=== PATIENT | male | born 1940 | race Caucasian/White ===

== ENCOUNTER → 2017-10-15 | Outpatient (CLI) | payer MEDICARE, OTHER ==
[2014-01-21 16:59] VITALS: BMI 27.1
[~2017-10-15] MED LIST: ACET-2031 PO; ALBU8.5H IH; ASPI-717 PO; ASPI-816 PO; AZIT500T47 PO; BIMA2.5D5 OP; DORZ10DR3 OP; ESCI10TA8 PO; FLU45SYR17 IM; HYDR-385 PO; IBUP-56 PO; LISI-362 PO; ONDA4TAB PO; OXYC-856 PO; RIVA15TA PO; RIVA20TA PO
[2017-10-15 13:37] LABS: PLATELET COUNT, AUTOMATED 179 K/uL (150-450)
== END ==
LOC: LAB 13:15
PROVIDERS: ATTEND Family Medicine
DX: I10 Essential (primary) hypertension (principal)
CPT/HCPCS: 36415; 82040; 82247; 82310; 82374; 82435; 82565; 82947; 84075; 84132; 84155; 84295; 84450; 84460; 84520; 85025

== ENCOUNTER → 2017-10-15 | Outpatient (CLI) | payer MEDICARE, OTHER ==
[2014-01-21 16:59] VITALS: BMI 27.1
== END ==
LOC: LAB 13:27
PROVIDERS: ATTEND Family Medicine
DX: Z02.9 Encounter for administrative examinations, unspecified (principal)

== ENCOUNTER → 2018-10-10 | Outpatient (CLI) | payer MEDICARE, OTHER ==
[2014-01-21 16:59] VITALS: BMI 27.1
[~2018-10-10] MED LIST changes: -ASPI-816 PO; +ASPI-870 PO; +FLUT16SP19 NS; +NYST15CR32 TP
[2018-10-10 17:25] LABS: PLATELET COUNT, AUTOMATED 210 K/uL (150-450)
== END ==
LOC: LAB 16:48
PROVIDERS: ATTEND Family Medicine
DX: I10 Essential (primary) hypertension (principal)
CPT/HCPCS: 36415; 82310; 82374; 82435; 82565; 82947; 84132; 84295; 84520; 85025

== ENCOUNTER 2018-11-10 12:29 | Emergency (ER) | payer MEDICARE, OTHER ==
[2014-01-21 16:59] VITALS: Wt 88.5 kg
--- NOTE | 2018-11-10 14:44 | ER Report ---
History and Physical Time Seen By MD: 13:00 Hx. of Stated Complaint: Pt. having blood in urine. No history of hematuria. UA sample was all blood. HPI/ROS CHIEF COMPLAINT: Blood in urine HISTORY OF PRESENT ILLNESS: 78 y/o m presents with blood in urine that he believes has been ongoing for 1 day. He believes he has had this 1 year ago, has never had workup. Mother had br cx, no other cx hx. No dysuria, no fevers/chills /abd pain/n/v. Night sweats x 2 yrs, no sig wt loss. No bone pain. Able to urinate. REVIEW OF SYSTEMS: Constitutional: No fever, no chills. Eyes: no blurred vision ENT: No sore throat. Cardiovascular: No chest pain, no palpitations. Respiratory: No cough, no shortness of breath. Gastrointestinal: No abdominal pain, no vomiting. Genitourinary: above Musculoskeletal: No back pain Skin: No rashes. Neurological: No headache. Remainder of the 14 system rev: Yes Allergies: Coded Allergies: No Known Drug Allergies (Verified , 11/10/18) Home Meds Active Scripts NYSTATIN 933511 UNT/ML Topical Cream (NYSTATIN 414744 UNT/ML Topical Cream) 15 Gm Cream..g., 15 GM TP BID for 30 Days, #1 TUBE Prov:KATI OROPEZA MD 10/10/18 Fluticasone Prop 50 Mcg Ns (FLONASE 50 MCG NS) 16 Gm [place].susp, 2 SPRAYS NS QDAY for 30 Days, #1 BOT 3 Refills Prov:KATI OROPEZA MD 10/10/18 Lisinopril (LISINOPRIL) 10 Mg Tablet, 2 TAB PO DAILY for 90 Days, #90 TAB 4 Refills Prov:KATI OROPEZA MD 10/10/18 Aspirin (Children's Aspirin) 81 Mg Tab.chew, 1 TAB PO DAILY, #100 TAB 4 Refills Prov:RODRÍGUEZ WELLER MD 05/14/14 Reported Medications Bimatoprost (LUMIGAN) 2.5 Ml Drops, 1 DROP OP QPM 10/31/13 Dorzolamide Hcl/Timolol Maleat (COSOPT EYE DROPS) 10 Ml Drops, 1 DROP OP BID 10/31/13 Reviewed Nurses Notes: Yes Hx Smoking: Yes (5-6 a day) Smoking Status: Current: Every Day Smoker Hx Substance Use Disorder: No Hx Alcohol Use: Yes (quit 8 yrs ago) Constitutional Vital Sign - Last 24 Hours 11/10/18 11/10/18 11/10/18 11/10/18 12:44 12:48 12:49 12:54 Temp 98.9 Pulse 85 81 81 Resp 16 B/P (MAP) 168/85 168/85 (112) Pulse Ox 93 95 88 O2 Delivery Room Air 11/10/18 11/10/18 11/10/18 11/10/18 12:59 13:04 13:09 13:14 Pulse 81 70 74 73 Pulse Ox 87 92 88 89 11/10/18 11/10/18 11/10/18 11/10/18 13:19 13:24 13:29 13:34 Pulse 73 74 75 73 Pulse Ox 95 94 91 89 11/10/18 11/10/18 11/10/18 11/10/18 13:39 13:44 13:49 13:54 Pulse 66 75 77 71 Pulse Ox 90 92 91 92 11/10/18 11/10/18 11/10/18 11/10/18 13:59 14:04 14:09 14:14 Pulse 72 81 92 75 Pulse Ox 89 92 96 92 11/10/18 11/10/18 11/10/18 11/10/18 14:19 14:24 14:29 14:34 Pulse 73 76 75 76 Pulse Ox 90 93 87 90 11/10/18 11/10/18 11/10/18 11/10/18 14:39 14:44 14:49 14:54 Pulse 69 71 72 75 B/P (MAP) 155/81 (105) Pulse Ox 93 95 89 90 11/10/18 11/10/18 11/10/18 11/10/18 14:59 15:00 15:04 15:09 Pulse 73 74 73 B/P (MAP) 141/89 (106) Pulse Ox 94 91 88 11/10/18 11/10/18 11/10/18 11/10/18 15:14 15:24 15:29 15:30 Pulse 74 71 73 B/P (MAP) 151/90 (110) Pulse Ox 92 91 92 11/10/18 11/10/18 11/10/18 11/10/18 15:34 15:39 15:44 15:49 Pulse 70 75 81 75 Pulse Ox 94 91 92 92 Physical Exam General Appearance: The patient is alert, has no immediate need for airway protection and no signs of toxicity. [ ] ENT, Mouth: Mucous membranes are moist. Respiratory: There are no retractions, lungs are clear to auscultation. Cardiovascular: Regular rate and rhythm. Gastrointestinal: Abdomen is soft and non tender, no masses, bowel sounds normal. Neurological: alert, oriented, moves all ext Skin: Warm and dry, no rashes. Musculoskeletal: Extremities are nontender, nonswollen and have full range of motion. DIFFERENTIAL DIAGNOSIS: After history and physical exam differential diagnosis was considered for uti, mass, prostatitis, or other emergent etiology. Medical Decision Making Data Points Result Diagram: 11/10/18 1438 11/10/18 1438 Laboratory Hematology Test 11/10/18 12:40 11/10/18 14:38 Urine Color Red Urine Clarity Turbid Urine pH 6.0 pH (4.8-9.5) Urine Specific [place] 1.020 Urine Protein 100 mg/dL (NEGATIVE) Urine Glucose (UA) Negative mg/dL (NEGATIVE) Urine Ketones Negative mg/dL (NEGATIVE) Urine Blood Large (NEGATIVE) Urine Nitrite Negative (NEGATIVE) Urine Bilirubin Negative (NEGATIVE) Urine Urobilinogen 0.2 mg/dL (0.2-1.9) Urine Leukocyte Esterase Negative (NEGATIVE) Urine RBC Tntc /HPF (0-2/HPF) Urine WBC 1-3 /HPF (0-5/HPF) Urine Squamous Epithelial Cells Rare /LPF (</=FEW) Urine Bacteria Rare /HPF (NONE-FEW) Urine Mucus None /HPF (NONE-FEW) Red Blood Count 5.46 M/uL (4.00-5.60) Mean Corpuscular Volume 91.7 fL (80.0-96.0) Mean Corpuscular Hemoglobin 30.9 pg (26.0-33.0) Mean Corpuscular Hemoglobin Concent 33.7 g/dL (32.0-36.0) Red Cell Distribution Width 14.2 % (11.5-14.5) Mean Platelet Volume 8.5 fL (7.2-11.1) Neutrophils (%) (Auto) 75.1 % (39.4-72.5) Lymphocytes (%) (Auto) 15.8 % (17.6-49.6) Monocytes (%) (Auto) 7.3 % (4.1-12.4) Eosinophils (%) (Auto) 0.6 % (0.4-6.7) Basophils (%) (Auto) 1.2 % (0.3-1.4) Nucleated RBC Relative Count (auto) 0.1 /100WBC Neutrophils # (Auto) 5.9 K/uL (2.0-7.4) Lymphocytes # (Auto) 1.2 K/uL (1.3-3.6) Monocytes # (Auto) 0.6 K/uL (0.3-1.0) Eosinophils # (Auto) 0.0 K/uL (0.0-0.5) Basophils # (Auto) 0.1 K/uL (0.0-0.1) Nucleated RBC Absolute Count (auto) 0.00 K/uL Peripheral Blood Smear No Y/N Prothrombin Time 14.0 seconds (12.0-14.4) Prothromb Time International Ratio 1.08 Activated Partial Thromboplast Time 32 seconds (23-35) Sodium Level 139 mmol/L (137-145) Potassium Level 4.4 mmol/L (3.5-5.0) Chloride Level 107 mmol/L (98-107) Carbon Dioxide Level 27 mmol/L (22-30) Blood Urea Nitrogen 17 mg/dl (9-21) Creatinine 1.10 mg/dl (0.66-1.25) Glomerular Filtration Rate Calc > 60.0 Random Glucose 103 mg/dl (75-110) Calcium Level 8.7 mg/dl (8.4-10.2) Total Bilirubin 0.5 mg/dl (0.2-1.3) Aspartate Amino Transf (AST/SGOT) 16 U/L (0-35) Alanine Aminotransferase (ALT/SGPT) 20 U/L (0-56) Alkaline Phosphatase 58 U/L (0-126) Total Protein 6.5 g/dl (6.3-8.2) Albumin 3.9 g/dl (3.5-5.0) Chemistry Test 11/10/18 12:40 11/10/18 14:38 Urine Color Red Urine Clarity Turbid Urine pH 6.0 pH (4.8-9.5) Urine Specific [place] 1.020 Urine Protein 100 mg/dL (NEGATIVE) Urine Glucose (UA) Negative mg/dL (NEGATIVE) Urine Ketones Negative mg/dL (NEGATIVE) Urine Blood Large (NEGATIVE) Urine Nitrite Negative (NEGATIVE) Urine Bilirubin Negative (NEGATIVE) Urine Urobilinogen 0.2 mg/dL (0.2-1.9) Urine Leukocyte Esterase Negative (NEGATIVE) Urine RBC Tntc /HPF (0-2/HPF) Urine WBC 1-3 /HPF (0-5/HPF) Urine Squamous Epithelial Cells Rare /LPF (</=FEW) Urine Bacteria Rare /HPF (NONE-FEW) Urine Mucus None /HPF (NONE-FEW) White Blood Count 7.8 k/uL (4.5-11.0) Red Blood Count 5.46 M/uL (4.00-5.60) Hemoglobin 16.9 g/dL (14.0-18.0) Hematocrit 50.0 % (42.0-52.0) Mean Corpuscular Volume 91.7 fL (80.0-96.0) Mean Corpuscular Hemoglobin 30.9 pg (26.0-33.0) Mean Corpuscular Hemoglobin Concent 33.7 g/dL (32.0-36.0) Red Cell Distribution Width 14.2 % (11.5-14.5) Platelet Count 172 K/uL (150-450) Mean Platelet Volume 8.5 fL (7.2-11.1) Neutrophils (%) (Auto) 75.1 % (39.4-72.5) Lymphocytes (%) (Auto) 15.8 % (17.6-49.6) Monocytes (%) (Auto) 7.3 % (4.1-12.4) Eosinophils (%) (Auto) 0.6 % (0.4-6.7) Basophils (%) (Auto) 1.2 % (0.3-1.4) Nucleated RBC Relative Count (auto) 0.1 /100WBC Neutrophils # (Auto) 5.9 K/uL (2.0-7.4) Lymphocytes # (Auto) 1.2 K/uL (1.3-3.6) Monocytes # (Auto) 0.6 K/uL (0.3-1.0) Eosinophils # (Auto) 0.0 K/uL (0.0-0.5) Basophils # (Auto) 0.1 K/uL (0.0-0.1) Nucleated RBC Absolute Count (auto) 0.00 K/uL Peripheral Blood Smear No Y/N Prothrombin Time 14.0 seconds (12.0-14.4) Prothromb Time International Ratio 1.08 Activated Partial Thromboplast Time 32 seconds (23-35) Glomerular Filtration Rate Calc > 60.0 Calcium Level 8.7 mg/dl (8.4-10.2) Total Bilirubin 0.5 mg/dl (0.2-1.3) Aspartate Amino Transf (AST/SGOT) 16 U/L (0-35) Alanine Aminotransferase (ALT/SGPT) 20 U/L (0-56) Alkaline Phosphatase 58 U/L (0-126) Total Protein 6.5 g/dl (6.3-8.2) Albumin 3.9 g/dl (3.5-5.0) Coagulation Test 11/10/18 14:38 Prothrombin Time 14.0 seconds Prothromb Time International Ratio 1.08 Activated Partial Thromboplast Time 32 seconds Urinalysis Test 11/10/18 12:40 Urine Color Red Urine Clarity Turbid Urine pH 6.0 pH (4.8-9.5) Urine Specific [place] 1.020 Urine Protein 100 mg/dL (NEGATIVE) Urine Glucose (UA) Negative mg/dL (NEGATIVE) Urine Ketones Negative mg/dL (NEGATIVE) Urine Blood Large (NEGATIVE) Urine Nitrite Negative (NEGATIVE) Urine Bilirubin Negative (NEGATIVE) Urine Urobilinogen 0.2 mg/dL (0.2-1.9) Urine Leukocyte Esterase Negative (NEGATIVE) Urine RBC Tntc /HPF (0-2/HPF) Urine WBC 1-3 /HPF (0-5/HPF) Urine Squamous Epithelial Cells Rare /LPF (</=FEW) Urine Bacteria Rare /HPF (NONE-FEW) Urine Mucus None /HPF (NONE-FEW) ED Course/Re-evaluation ED Course 78-year-old male presents with asymptomatic hematuria. He has had some constitutional symptoms though states these of been ongoing. He has no personal cancer history. UA is not revealing for UTI. Patient is able to urinate and does not want Her at this point. My bedside ultrasound does show appearance of mass in the bladder. HD stable; will f/u with Dr. Cabrera. Pt aware of SRP's including obstruction. Decision to Disposition Date: Nov 10, 2018 Decision to Disposition Time: 16:02 Depart Departure Latest Vital Signs Vital Signs Date Time Temp Pulse Resp B/P (MAP) Pulse Ox O2 Delivery O2 Flow Rate FiO2 11/10/18 15:49 75 92 11/10/18 15:30 151/90 (110) 11/10/18 12:44 98.9 16 Room Air Impression: Primary Impression: Hematuria Condition: Improved Disposition: HOME OR SELF-CARE Referrals: KATI OROPEZA MD (PCP) 2 Days EMMIE CABRERA MD 1 Day Patient Instructions: Hematuria (ED) Additional Instructions: As we discussed, call Dr. Cabrera's office tomorrow for follow up. He stated he would be able to see you this week. Please return if unable to urinate, pain, or any concerns. Problem Qualifiers Primary Impression: Hematuria Hematuria type: gross Qualified Codes: R31.0 - Gross hematuria VLAD CLEMENTE MD Nov 10, 2018 14:44
[2018-11-10 14:49] LABS: PLATELET COUNT, AUTOMATED 172 K/uL (150-450)
[2018-11-10 14:57] LABS: INR 1.08
[2018-11-10 15:30] VITALS: BP 151/90
== END 2018-11-10 16:20 | disposition home or self-care (01) ==
LOC: ER 13:25
DX: R31.0 Gross hematuria (principal); N32.89 Other specified disorders of bladder
CPT/HCPCS: 36415; 81001; 82040; 82247; 82310; 82374; 82435; 82565; 82947; 84075; 84132; 84155; 84295; 84450; 84460; 84520; 85025; 85610; 85730; 99284

== ENCOUNTER → 2018-11-11 | Outpatient (REF) | payer MEDICARE, OTHER ==
[2014-01-21 16:59] VITALS: BMI 27.1
--- NOTE | 2018-11-11 17:34 | RADIOLOGY IMAGING REPORT ---
FACILITY: [facility] - [place] PATIENT NAME: Ashutosh Pham : 1940 MR: [id number] V: [id number] EXAM DATE: ORDERING PHYSICIAN: EMMIE LOMAS TECHNOLOGIST: [place] [facility] [place]: Ashutosh Pham : 1940 Visit/Account:[id number] Date of Sevice: 11/11/2018 CT ABDOMEN PELVIS W & W/O CONTRAST HISTORY: Hematuria TECHNIQUE: Axial images acquired through the abdomen/pelvis both with and without IV contrast.. Vlad nal and sagittal reformatting also performed.Dose Lowering Technique One of the following dose optimization techniques was utilized in the performance of this exam: Autom ated exposure control; adjustment of the mA and/or kV according to the patient's size; or use of an i terative reconstruction technique. Specific details can be referenced in the facility's radiology C T exam operational policy. CONTRAST: 125 mL Isovue-370 COMPARISON: CTA chest January 20, 2014 FINDINGS: Visualized lung bases: There is linear scarring in the right lung base Hepatobiliary: There is a round subcentimeter hypoattenuating lesion in the left lobe the liver whic h may represent a cyst although is too small to characterize Spleen: Negative. Adrenals: There is thickening of both adrenal glands Pancreas: Negative. Kidneys ureters and bladder: There is partial duplication of the right renal collecting system. Ther e is a 2.5 x 2.8 x 2.9 cm mass in the posterior left-sided the bladder just anterior to the left UVJ Genitalia: Prostate gland is enlarged impinging upon the floor the bladder GI: There is a moderate amount of fecal material seen throughout colon which can be seen with consti pation Vessels/spaces/nodes: There extensive atherosclerotic calcifications throughout the abdomen and pelv is Bones/soft tissues: There small bilateral inguinal hernias containing fat, left greater than right. Small sclerotic densities are identified in the right iliac bone which may simply represent bone isl ands. There are extensive spondylotic changes in the lumbar spine Additional findings: None pertinent. IMPRESSION: There is a 2.5 x 2.8 x 2.9 cm mass in the posterior left-sided the bladder just anterior to the left UVJ which is concerning for neoplasm Prostate gland is moderately enlarged impinging upon the floor the bladder There is thickening of both adrenal glands Moderate amount of fecal material in the colon which can be seen with constipation Small bilateral inguinal hernias containing fat, left greater than right Small sclerotic densities in the right iliac bone may simply represent bone islands although clinical correlation needed Report Dictated By: Farhana Singh MD at 11/11/2018 5:19 PM Report E-Signed By: Farhana Singh MD at 11/11/2018 5:31 PM BILLYN:[email or web address]
== END ==
LOC: ZZSENDIN 11:10
PROVIDERS: ATTEND Urology
DX: Z00.00 Encounter for general adult medical examination without abnormal findings (principal); R97.20 Elevated prostate specific antigen [PSA]
CPT/HCPCS: 84153

== ENCOUNTER → 2018-11-11 | Outpatient (CLI) | payer MEDICARE, OTHER ==
[2014-01-21 16:59] VITALS: BMI 27.1
[~2018-11-11] MED LIST changes: +IOPAMIDOL 76% 100 ML INFUS BTL 100 ML ONE; +NS(*) 0.9% 50 ML BAG 50 ML ONE
--- NOTE | 2018-11-12 15:00 | RADIOLOGY IMAGING REPORT ---
FACILITY: [facility] - [place] PATIENT NAME: Ashutosh Pham : 1940 MR: [id number] V: [id number] EXAM DATE: ORDERING PHYSICIAN: EMMIE LOMAS TECHNOLOGIST: Location: [facility] [place] Patient: Ashutosh Pham : 1940 Visit/Account:[id number] Date of Sevice: 11/11/2018 CT ABDOMEN PELVIS W & W/O CONTRAST HISTORY: Hematuria TECHNIQUE: Axial images acquired through the abdomen/pelvis both with and without IV contrast.. Vlad nal and sagittal reformatting also performed.Dose Lowering Technique One of the following dose optimization techniques was utilized in the performance of this exam: Autom ated exposure control; adjustment of the mA and/or kV according to the patient's size; or use of an i terative reconstruction technique. Specific details can be referenced in the facility's radiology C T exam operational policy. CONTRAST: 125 mL Isovue-370 COMPARISON: CTA chest January 20, 2014 FINDINGS: Visualized lung bases: There is linear scarring in the right lung base Hepatobiliary: There is a round subcentimeter hypoattenuating lesion in the left lobe the liver whic h may represent a cyst although is too small to characterize Spleen: Negative. Adrenals: There is thickening of both adrenal glands Pancreas: Negative. Kidneys ureters and bladder: There is partial duplication of the right renal collecting system. Ther e is a 2.5 x 2.8 x 2.9 cm mass in the posterior left-sided the bladder just anterior to the left UVJ Genitalia: Prostate gland is enlarged impinging upon the floor the bladder GI: There is a moderate amount of fecal material seen throughout colon which can be seen with consti pation Vessels/spaces/nodes: There extensive atherosclerotic calcifications throughout the abdomen and pelv is Bones/soft tissues: There small bilateral inguinal hernias containing fat, left greater than right. Small sclerotic densities are identified in the right iliac bone which may simply represent bone isl ands. There are extensive spondylotic changes in the lumbar spine Additional findings: None pertinent. IMPRESSION: There is a 2.5 x 2.8 x 2.9 cm mass in the posterior left-sided the bladder just anterior to the left UVJ which is concerning for neoplasm Prostate gland is moderately enlarged impinging upon the floor the bladder There is thickening of both adrenal glands Moderate amount of fecal material in the colon which can be seen with constipation Small bilateral inguinal hernias containing fat, left greater than right Small sclerotic densities in the right iliac bone may simply represent bone islands although clinical correlation needed Report Dictated By: Farhana Singh MD at 11/11/2018 5:19 PM Report E-Signed By: Farhana Singh MD at 11/11/2018 5:31 PM BILLYN:[email or web address]
== END ==
LOC: CT 14:04
PROVIDERS: ATTEND Urology
DX: R31.0 Gross hematuria (principal)
CPT/HCPCS: 74178; J7050; Q9967

== ENCOUNTER 2018-11-18 02:44 | Inpatient (IN) | payer MEDICARE, OTHER ==
--- NOTE | 2018-11-12 16:15 | EKG ---
FACILITY: [facility] - [place] PATIENT NAME: MARILEE JAIME : [id number] MR: [id number] V: [id number] EXAM DATE: ORDERING PHYSICIAN: EMMIE LOMAS TECHNOLOGIST: Test Reason : Pre-op Blood Pressure : / mmHG Vent. Rate : 073 BPM Atrial Rate : 073 BPM P-R Int : 128 ms QRS Dur : 086 ms QT Int : 412 ms P-R-T Axes : 082 054 -38 degrees QTc Int : 453 ms Normal sinus rhythm Nonspecific ST and T wave abnormality Abnormal ECG When compared with ECG of 13-APR-2017 15:14, No significant change was found Confirmed by Sree Paz ([id number]) on 11/13/2018 12:07:22 AM Referred By: Confirmed By:Sree Messer
[2018-11-12 16:30] LABS: INR 1.03
--- NOTE | 2018-11-12 16:43 | RADIOLOGY IMAGING REPORT ---
FACILITY: [facility] PATIENT NAME: Ashutosh Pham : 1940 MR: [id number] V: [id number] EXAM DATE: ORDERING PHYSICIAN: EMMIE LOMAS TECHNOLOGIST: Location: [facility] Patient: Ashutosh Pham : 1940 Visit/Account:[id number] Date of Sevice: 11/12/2018 Exam type: CHEST PA LAT History: Pre-op, history of blood clot in heart one year ago Comparison: March 15, 2016. Findings: Again noted is hyperinflation of the lung garcia. There is mild scarring in the left lung base that appears unchanged. The cardiac silhouette is normal in size. There is prominence of the pulmonary a rteries appear similar to the prior study. There are spondylotic changes in the thoracic spine. IMPRESSION: 1. Hyperinflation of the lung garcia and left basilar scarring appears unchanged Prominence of the central pulmonary arteries can be seen with pulmonary arterial hypertension Report Dictated By: Farhana Singh MD at 11/12/2018 4:36 PM Report E-Signed By: Farhana Singh MD at 11/12/2018 4:40 PM WSN:[email or web address]
--- NOTE | 2018-11-15 16:25 | HISTORY AND PHYSICAL ---
DATE OF ADMISSION: November 18, 2018 CHIEF COMPLAINT Gross hematuria with bladder mass. HISTORY OF PRESENT ILLNESS Patient is a 78-year-old white male with long history of smoking who recently presented to the Emergency Room with one to two days of gross painless hematuria. He was evaluated there where urinalysis was grossly bloody with no signs of infection. Ultrasound in the Emergency Room at the bedside revealed a questionable bladder mass. He was seen in Urology Clinic and continued to have significant microscopic hematuria. The patient is significantly affected by glaucoma with decreased vision, and it was difficult for him to 100% say how long the hematuria had occurred, but his daughter reported questionably he was treated approximately two months ago. PSA was obtained, which was 1.39, and he had a creatinine of 1.10. A CT urogram was performed, which revealed a 2.5 x 2.9 cm left lateral wall bladder mass just anterior to the left ureteral orifice. There was no adenopathy, hydronephrosis, or local extension noted. The patient underwent anesthetic cystoscopy in the office, which revealed a papillary bladder tumor just superolateral to the left ureteral orifice, measuring approximately 2.5 cm in size. There were no other obvious lesions throughout the bladder. The patient is now being brought to the operating room for planned anesthetic cystoscopy with transurethral resection of bladder tumor and possible post intravesical chemotherapy instillation with mitomycin C. This tumor is significantly located to the left ureteral orifice, and the risk of left ureter injury has also been discussed. Given its size, he would likely require a restaging TUR in four to six weeks following this procedure if this reveals to be noninvasive transitional cell carcinoma. PAST MEDICAL HISTORY 1. Decreased vision secondary to glaucoma since 2012. 2. Hard of hearing. 3. Hypertension. 4. History of PE with DVT. 5. COPD. 6. Degenerative joint disease. 7. Low back pain. 8. History of left lower extremity fracture. PAST SURGICAL HISTORY 1. Bilateral vasectomy. 2. Left ankle. CURRENT MEDICATIONS 1. Aspirin. 2. Lumigan drops. 3. Cosopt drops. 4. Flonase. 5. Lisinopril. 6. Nystatin. ALLERGIES No known drug allergies. SOCIAL HISTORY Patient is a , lives in [place], [place]. He has a prolonged smoking history. REVIEW OF SYSTEMS Patient denies chest pain, shortness of breath, productive cough, fever, chills, liver disease, bleeding disorder, or chronic headaches. PHYSICAL EXAMINATION GENERAL: Patient is a well-developed, well-nourished white male in no acute distress. HEENT: Normocephalic, atraumatic. CHEST: Clear to auscultation bilaterally. CARDIOVASCULAR: Regular rate and rhythm. ABDOMEN: Soft, nontender. No masses are palpated. GENITOURINARY: Deferred to the OR. EXTREMITIES: Without clubbing, cyanosis, or edema. NEUROLOGIC: Nonfocal. IMPRESSION A 78-year-old white male with an approximately 2.5 x 3 cm bladder mass on the left lateral inferior wall consistent with transitional cell carcinoma. PLAN We will perform anesthetic cystoscopy, transurethral resection of his bladder tumor with possible post-resection mitomycin C intravesical instillation. MTDD
[2018-11-18] VITALS (9 sets, daily range): BP systolic 109–180; BP diastolic 61–93
[~2018-11-18] VITALS: Ht 193 cm; Wt 83.0 kg
[~2018-11-18 02:44] MED LIST changes: +ASPI-1471 PO; +FAMOTIDINE 20 MG TAB PO ONE; -IOPAMIDOL 76% 100 ML INFUS BTL 100 ML ONE; -NS(*) 0.9% 50 ML BAG 50 ML ONE
[2018-11-18] MEDS ORDERED: ceFAZolin(*) 2GM/D5W 50ML 50 ML IVPB ONE (12:10)
[2018-11-18] MEDS ORDERED: FAMOTIDINE 20 MG TAB PO ONE (13:00)
[2018-11-18] MEDS ORDERED: ceFAZolin(*) 1 GM VIAL 1 GM in NS(*) 0.9% 100 ML ADDVANT BAG 100 ML IVPB ONE (14:05)
[2018-11-18] MEDS ORDERED: NORMOSOL R SOLN(*) 1000 ML BAG 1,000 ML IV PRN (14:05)
[2018-11-18] MEDS ORDERED: LIDOCAINE/SOD BICARB 8.4% SYR ID ONE (14:05)
[2018-11-18] MEDS ORDERED: MIDAZOLAM 2 MG/2 ML VIAL IVP PRN (14:15)
[2018-11-18] MEDS ORDERED: fentaNYL CITR 100 MCG/2 ML AMP ONE (15:30)
[2018-11-18] MEDS ORDERED: SUGAMMADEX SOD 200 MG/2 ML SDV ONE (16:18)
[2018-11-18] MEDS ORDERED: BELLADONNA ALK/OPIUM 60MG SUPP PR ONE (16:28)
[2018-11-18] MEDS ORDERED: DEXAMETHASONE SOD PHOS 10MG/ML ONE (16:32)
[2018-11-18] MEDS ORDERED: ONDANSETRON 4 MG/2 ML VIAL ONE (16:32)
[2018-11-18] MEDS ORDERED: PROPOFOL EMUL(*) 10MG/ML 20 ML 20 ML ONE (16:32)
[2018-11-18] MEDS ORDERED: hydrALAZINE HCL 20 MG/ML VIAL ONE (17:24)
[2018-11-18] MEDS ORDERED: LISINOPRIL 20 MG TAB PO ONE (17:25)
[2018-11-18] MEDS ORDERED: BELLADONNA ALK/OPIUM 60MG SUPP PR PRN (18:05)
[2018-11-18] MEDS ORDERED: ZOLPIDEM TARTRATE 5 MG TAB PO PRN (18:10)
[2018-11-18] MEDS ORDERED: PHENAZOPYRIDINE 200 MG TAB PO PRN (18:10)
[2018-11-18] MEDS ORDERED: MAG HYD/AL HYD/SIMETH 30ML UDC PO PRN (18:10)
[2018-11-18] MEDS ORDERED: OXYBUTYNIN CHL XL 5 MG TABCR PO PRN (18:10)
[2018-11-18] MEDS ORDERED: NS(*) 0.9% 1000 ML BAG 1,000 ML IV PRN (18:15)
[2018-11-18] MEDS ORDERED: APAP/HYDROCODONE 325/5 TAB PO PRN (18:15)
[2018-11-18] MEDS ORDERED: METOPROLOL TART 5 MG/5 ML VIAL ONE (19:04)
[2018-11-18] MEDS ORDERED: ASPIRIN 325 MG TAB ONE (19:17)
[2018-11-18] MEDS ORDERED: NITROGLYCERIN 0.4 MG SUBL SL ONE (19:36)
--- NOTE | 2018-11-18 19:37 | EKG ---
FACILITY: [facility] - [place] PATIENT NAME: MARILEE JAIME : [id number] MR: [id number] V: [id number] EXAM DATE: ORDERING PHYSICIAN: KESHA EDMOND TECHNOLOGIST: MARISSA Whittaker Reason : PACU Blood Pressure : / mmHG Vent. Rate : 087 BPM Atrial Rate : 087 BPM P-R Int : 134 ms QRS Dur : 080 ms QT Int : 388 ms P-R-T Axes : 095 047 -79 degrees QTc Int : 466 ms Sinus rhythm with premature atrial complexes Marked ST abnormality, possible inferior subendocardial injury Marked ST abnormality, possible anterolateral subendocardial injury Abnormal ECG Confirmed by JAZMYN ONEILL ([id number]) on 11/19/2018 6:37:29 AM Referred By: Confirmed By:JAZMYN ONEILL
[2018-11-18] MEDS ORDERED: MORPHINE 2 MG/ML SYR ONE (19:45)
[2018-11-18 19:58] LABS: PLATELET COUNT, AUTOMATED 179 K/uL (150-450)
[2018-11-18] MEDS: BIMATOPROST 2.5 ML BTL 2.5 ML BTL OU SCH (21:00)
[2018-11-18] MEDS: DORZOLAMIDE/TIMOLOL 10 ML BTL OU SCH (21:00)
[2018-11-18] MEDS: DOCUSATE SODIUM 100 MG CAP PO SCH (21:43)
--- NOTE | 2018-11-18 21:54 | Hospitalist Consultation ---
History of Present Illness Requesting Physician Dr. Cabrera Reason for Consult ST depression History of Present Illness This patient had a cystoscopy earlier today and developed ST depression after the procedure. He denied chest pain, but did experience some intermittent jaw pain. History Problems: (1) DVT (deep venous thrombosis) Status: Chronic (2) Glaucoma Status: Chronic (3) HTN (hypertension) Status: Chronic Home Meds Active Scripts Fluticasone Prop 50 Mcg Ns (FLONASE 50 MCG NS) 16 Gm [place].susp, 2 SPRAYS NS QDAY for 30 Days, #1 BOT 3 Refills Prov:KATI OROPEZA MD 10/10/18 Lisinopril (LISINOPRIL) 10 Mg Tablet, 2 TAB PO DAILY for 90 Days, #90 TAB 4 Refills Prov:KATI OROPEZA MD 10/10/18 Reported Medications Aspirin (ASPIR 81) 81 Mg Tablet.dr, 81 MG PO QDAY, TAB 11/13/18 Bimatoprost (LUMIGAN) 2.5 Ml Drops, 1 DROP OP QPM 10/31/13 Dorzolamide Hcl/Timolol Maleat (COSOPT EYE DROPS) 10 Ml Drops, 1 DROP OP BID 10/31/13 Discontinued Scripts NYSTATIN 428690 UNT/ML Topical Cream (NYSTATIN 393667 UNT/ML Topical Cream) 15 Gm Cream..g., 15 GM TP BID for 30 Days, #1 TUBE Prov:KATI OROPEZA MD 10/10/18 Aspirin (Children's Aspirin) 81 Mg Tab.chew, 1 TAB PO DAILY, #100 TAB 4 Refills Prov:RODRÍGUEZ WELLER MD 05/14/14 Allergies: Coded Allergies: No Known Drug Allergies (Verified , 11/13/18) Patient History: FH: breast cancer MOTHER Hx Smoking: Yes (20/DAY) Smoking Status: Current: Every Day Smoker Caffeine Intake: Coffee Caffeine/Cups Per Day: 5 Hx Alcohol Use: Yes Alcohol Used: Beer Hx Substance Use Disorder: No Social Drug Use: Never Review of Systems All Systems Reviewed/Normal: Yes Exam Vital Signs Vital Signs Date Time Temp Pulse Resp B/P (MAP) Pulse Ox O2 Delivery O2 Flow Rate FiO2 11/18/18 20:29 98.0 16 131/67 (88) 98 Nasal Cannula 2.0 11/18/18 20:25 79 Neuro: No Gross deficits Eyes: PERRLA Cardiovascular: Regular Rate and Rhythm Respiratory: Clear to Auscultation GI: Abd Soft and Non-Tender Extremities: No Edema Integumentary: No Cyanosis Medical Decision Making Data Points Result Diagram: 11/18/18195011/18/181921 Assessment and Plan Problems: (1) Abnormal EKG Assessment & Plan: He did develop ST depression after his procedure. He complained of jaw pain, but no chest pain. The initial troponin was negative and a series is pending overnight. He was given aspirin and metoprolol. He also was given his regular blood pressure medications. We will trend his tro ponin and repeat an EKG in the morning. Venous Thromboembolism Antithrombotics Is Pt On Any Antithrombotics?: No JAZMYN ONEILL DO Nov 18, 2018 21:54
[2018-11-18] MEDS: NS 0.9% 3000 ML IRRIGATION BAG 3,000 ML IR PRN (21:59)
[2018-11-19] VITALS (10 sets, daily range): BP systolic 110–140; BP diastolic 61–82; Ht 193 cm; Wt 83.0 kg
[2018-11-19] MEDS: ceFAZolin(*) 2GM/D5W 50ML 50 ML IVPB SCH ×3 (00:39→17:01)
[2018-11-19] MEDS ORDERED: [UNRECOGNIZED DRUG - OTHER] IV SCH (01:40)
[2018-11-19] MEDS ORDERED: HEPARIN (PORC) 5000 UN/ML VIAL IVP ONE (01:40)
[2018-11-19 03:09] LABS: PLATELET COUNT, AUTOMATED 161 K/uL (150-450)
--- NOTE | 2018-11-19 05:54 | OPERATIVE REPORT 1 ---
EVENT DATE: November 18, 2018 SURGEON: Holger Cabrera MD ANESTHESIOLOGIST: Amari Garcia DO ANESTHESIA: General. PREOPERATIVE DIAGNOSIS Left posterior floor/lateral wall bladder tumor measuring 3 cm. POSTOPERATIVE DIAGNOSIS Left posterior floor/lateral wall bladder tumor measuring 3 cm. PROCEDURE PERFORMED 1. Cystoscopy. 2. Transurethral resection of bladder tumor on left floor/lateral wall. 3. Bimanual exam under anesthesia. ESTIMATED BLOOD LOSS 100 mL. INTRAVENOUS FLUIDS Crystalloids. PATHOLOGY Transurethral resection chips of tumor for permanent section. COMPLICATIONS None. DRAINS 22-Belarusian three-way Hernandez catheter. CONDITION Patient taken to recovery room awake and in stable condition. STATEMENT OF MEDICAL NECESSITY Patient is a 78-year-old white male with a long smoking history, who recently presented to the emergency room with gross painless hematuria. A bedside ultrasound there showed a questionable bladder mass. He was seen in the urology clinic, where a CT urogram was performed, which showed approximately 2.5 x 3 cm filling defect on the left inferolateral wall just above the left ureteral orifice. There was no adenopathy or evidence of extinction. Office flexible cystoscopy revealed this to be a papillary tumor just cephalad and lateral to the left ureteral orifice. No other tumors in the bladder were identified. He is now being brought to the operating room for planned transurethral resection of bladder tumor. Risks and benefits were explained, including need for restaging resection in four to six weeks depending on his pathology results. DESCRIPTION OF PROCEDURE Patient was brought to the operating room, and after general anesthetic was obtained, he was placed in the dorsal lithotomy position and prepped and draped in the usual sterile manner. Anesthetic cystoscopy was performed with the 21- Bel[place]ian rigid Castillo sheath and both 30- and 70-degree lenses. He had a normal- appearing pendulous, bulbar, membranous, and prostatic urethra. Upon entering his bladder, his bladder neck was mildly elevated and slightly friable. A previously noted tumor was again identified. It was approximately 3 cm and papillary in nature, and it was approximately 1 cm superolateral to the left ureteral orifice. There was another very small papillary lesion just inferolateral to the left ureteral orifice as well, measuring 1 cm. The remainder of his bladder was tumor-free. It was 2+ trabeculated, but no other lesions were identified. He was noted to have clear efflux of urine bilaterally. At this point, the cystoscope was removed. The patient's distal urethra was sounded out to 30 Belarusian with the Berks sounds. The 24-Belarusian continuous- flow sheath was then introduced into the urethra and guided into the bladder. Transurethral resection of the bladder tumor was then performed starting medially on the surface and proceeding out laterally. Out toward the lateral edge, he did have a significant obturator reflex and was therefore given a paralytic before continuing with the procedure. The tumor was extremely vascular, and after each resection, fulguration of a few bleeding vessels was the norm. The tumor was resected almost flat on the edges and still had a mild elevation in the midportion after approximately 45 minutes of resecting. The ureteral orifice was clear from the area of resection and still effluxing clear urine. The small papillary lesion just inferior to this was fulgurated. It was unclear at this point whether the tumor had advanced into the muscularis proper, given its size, but it appeared that some of the tissue on the lateral edges was containing muscularis propria. At this point, it was clear that the patient would need a restaging TUR in the near future, if, indeed, the pathology that we currently obtained did not show muscularis invasion. Given this fact and the large area of resection with extended time, it was felt best to terminate the procedure at this point. Therefore, the patient's bladder was Ellik evacuated free of all the chips obtained. He was then reinspected. There was no significant active bleeding along the course of the tumor that could be obtained. His bladder neck was moderately friable, and there was no evidence of bladder perforation seen. The scope was removed. A 22-Belarusian three-way Hernandez catheter was inserted with 30 mL in the balloon. He was begun on a continuous bladder irrigation with normal saline. A B and O suppository was given per rectally, and a bimanual exam performed. The patient's prostate appeared to be approximately 60 g and was smooth. His bladder was freely mobile in the pelvis without evidence of induration or masses. At the conclusion of the procedure, the patient was awakened in the operating room and taken to the recovery area in stable condition. The plan will be to keep the patient overnight with his catheter to gravity drainage. We will check his final pathology to plan a followup evaluation and/or treatment. Likely he will need a restaging TUR in four to six weeks if significant muscularis propria is not contained in his specimen. ROOPA
--- NOTE | 2018-11-19 06:38 | EKG ---
FACILITY: [facility] PATIENT NAME: MARILEE JAIME : [id number] MR: [id number] V: [id number] EXAM DATE: ORDERING PHYSICIAN: JAZMYN ONEILL TECHNOLOGIST: MARISSA Test Reason : AM EKG Blood Pressure : / mmHG Vent. Rate : 066 BPM Atrial Rate : 066 BPM P-R Int : 132 ms QRS Dur : 086 ms QT Int : 440 ms P-R-T Axes : 088 069 -29 degrees QTc Int : 461 ms Normal sinus rhythm RSR' or QR pattern in V1 suggests right ventricular conduction delay Anteroseptal infarct , age undetermined Marked ST abnormality, possible inferior subendocardial injury Abnormal ECG Confirmed by JAZMYN ONEILL ([id number]) on 11/19/2018 6:38:44 AM Referred By: Confirmed By:JAZMYN ONEILL
[2018-11-19 07:22] LABS: PLATELET COUNT, AUTOMATED 171 K/uL (150-450)
[2018-11-19] MEDS: DORZOLAMIDE/TIMOLOL 10 ML BTL OU SCH ×2 (08:04→21:40)
[2018-11-19] MEDS: DOCUSATE SODIUM 100 MG CAP PO SCH ×2 (08:05→21:41)
[2018-11-19] MEDS: FLUTICASONE PROP 0.05% 16 GM SCH (08:15)
[2018-11-19] MEDS: NS 0.9% 3000 ML IRRIGATION BAG 3,000 ML IR PRN ×4 (08:30→15:31)
[2018-11-19] MEDS ORDERED: DORZOLAMIDE/TIMOLOL 10 ML BTL OU SCH (09:00)
[2018-11-19] MEDS ORDERED: LISINOPRIL 10 MG TAB PO SCH (09:00)
[2018-11-19] MEDS ORDERED: METOPROLOL TART 50 MG TAB PO SCH (09:25)
[2018-11-19 12:59] LABS: PLATELET COUNT, AUTOMATED 181 K/uL (150-450)
[2018-11-19] MEDS ORDERED: BIMATOPROST OP SCH (17:00)
--- NOTE | 2018-11-19 17:51 | Hospitalist Progress Note ---
Subjective Progress Notes Subjective No cp/jaw pain/arm pain overnight. Physical Exam Vital Signs Date Time Temp Pulse Resp B/P (MAP) Pulse Ox O2 Delivery O2 Flow Rate FiO2 11/19/18 15:38 98.3 57 16 118/66 (83) 92 Room Air 11/19/18 05:20 1.0 Intake and Output 11/19/18 07:00 Intake Total 74361 ml Output Total 56232 ml Balance -5240 ml Intake Oral 220 ml IV Total 1850 ml Other 9900 ml Output Urine Total 7810 ml Emesis 550 ml Other 8850 ml # Voids 1 # Bowel Movements 0 # Emeses 1 General Appearance: Alert, Awake, No Acute Distress Cardiovascular: Regular Rate and Rhythm Respiratory: Clear to Auscultation Extremities: No Edema Result Diagram: 11/19/18 1254 11/19/18 0713 Assessment and Plan Problems: (1) NSTEMI (non-ST elevated myocardial infarction) Status: Acute Assessment & Plan: He did develop inf/ant/lat ST depression after his procedure. He complained of jaw pain, but no chest pain. The initial troponin was negative, but it has increased to 1.45 and then 2.030. He no longer has jaw pain and the ST depression has essentially resolved. We have recommended that he be transferred to a higher level of care to likely get a heart catheterization. He doesn't want any aggressive treatment. He has expressed understanding that he is at risk of having a fatal arrhythmia/[place]. Also, he understands that any future surgery poses a very high risk of morbidity and mortality for him. He has been started on ASA and metoprolol. He was on a heparin drip but that was stopped because the risk of bleeding outweighed any benefit from anticoagulation. Will start Lipitor 40mg tonight and consider up titration as an outpatient if tolerated. (2) Hematuria Status: Acute Assessment & Plan: He has a bladder tumor and had the attempted resection on 11/18. Dr. Cabrera wasn't able to get all of the tumor out because of the ECG changes/NSTEMI. See Dr. Cabrera's notes for details. (3) HTN (hypertension) Status: Chronic Assessment & Plan: Continue Lisinopril with parameters. Metoprolol started, as above. (4) Glaucoma Status: Chronic Assessment & Plan: Very advanced and he has very low vision bilaterally that severely impacts his quality of life. (5) Depression Status: Chronic Assessment & Plan: He is mourning the loss of his and he has a very impaired quality of life secondary to low vision. I offered that he be seen by a counselor but he refused. He is not suicidal, but is ready to . (6) COPD (chronic obstructive pulmonary disease) Status: Chronic Assessment & Plan: Lungs clear. Exam Sepsis Risk: No Definite Risk JASMYN LOERA MD Nov 19, 2018 17:51
[2018-11-19] MEDS: BIMATOPROST 2.5 ML BTL 2.5 ML BTL OU SCH (21:40)
[2018-11-19] MEDS: METOPROLOL TART 50 MG TAB PO SCH (21:41)
[2018-11-19] MEDS: ATORVASTATIN 40 MG TAB PO SCH (21:41)
[2018-11-20] VITALS (7 sets, daily range): BP systolic 117–161; BP diastolic 71–94
[2018-11-20 06:22] LABS: PLATELET COUNT, AUTOMATED 179 K/uL (150-450)
[2018-11-20] MEDS ORDERED: METO25TA23 PO (08:26)
[2018-11-20] MEDS ORDERED: ATOR40TA69 PO (08:26)
--- NOTE | 2018-11-20 08:33 | Hospitalist Progress Note ---
Subjective Progress Notes Subjective No cp/sob/jaw pain/arm pain. Physical Exam Vital Signs Date Time Temp Pulse Resp B/P (MAP) Pulse Ox O2 Delivery O2 Flow Rate FiO2 11/20/18 08:01 66 117/77 (90) 92 11/20/18 03:58 98.5 14 Room Air 11/19/18 05:20 1.0 Intake and Output 11/20/18 07:00 Intake Total 19907 ml Output Total 78950 ml Balance 01129 ml Intake Oral 700 ml IV Total 29597 ml Other 06828 ml Output Urine Total 2430 ml Other 13748 ml General Appearance: Alert, Awake, No Acute Distress Cardiovascular: Regular Rate and Rhythm Result Diagram: 11/20/18 0508 11/20/18 0508 Assessment and Plan Problems: (1) NSTEMI (non-ST elevated myocardial infarction) Status: Acute Assessment & Plan: He did develop inf/ant/lat ST depression after his procedure. He complained of jaw pain, but no chest pain. The initial troponin was negative, but it increased to 1.45 and then 2.030. Now down to 0.6. He no longer has jaw pain and the ST depression has essentially resolved. We had recommended that he be transferred to a higher level of care to likely get a heart catheterization. He doesn't want any aggressive treatment. He has expressed understanding that he is at risk of having a fatal arrhythmia/[place]. A lso, he understands that any future surgery poses a very high risk of morbidity and mortality for him. He has been restarted on ASA (held prior to surgery) and started on metoprolol/atorvastatin (started at 40mg and will see how he tolerates and defer to his PCP for titration). He was on a heparin drip but that was stopped because the risk of bleeding outweighed any benefit from anticoagulation and this event wasn't embolic in nature but rather a supply problem during the stress of surgery. (2) Hematuria Status: Acute Assessment & Plan: He has a bladder tumor and had the attempted resection on 11/18. Dr. Cabrera wasn't able to get all of the tumor out because of the ECG changes/NSTEMI. See Dr. Cabrera's notes for details. (3) HTN (hypertension) Status: Chronic Assessment & Plan: Lisinopril stopped and now he will be metoprolol. He has f/u with his PCP on 11/28 and they can reassess his BP then and see if needs to be back on lisinopril. (4) Glaucoma Status: Chronic Assessment & Plan: Very advanced and he has very low vision bilaterally that severely impacts his quality of life. (5) Depression Status: Chronic Assessment & Plan: He is mourning the loss of his and he has a very impaired quality of life secondary to low vision. I offered that he be seen by a counselor but he refused. He is not suicidal, but is ready to . (6) COPD (chronic obstructive pulmonary disease) Status: Chronic Assessment & Plan: Lungs clear. Copies to: KATI OROPEZA MD ; Exam Sepsis Risk: No Definite Risk JASMYN LOERA MD Nov 20, 2018 08:33
[2018-11-20] MEDS: FLUTICASONE PROP 0.05% 16 GM SCH ×2 (09:00→09:08)
[2018-11-20] MEDS ORDERED: LISINOPRIL 10 MG TAB PO SCH (09:00)
[2018-11-20] MEDS: DOCUSATE SODIUM 100 MG CAP PO SCH ×2 (09:07→20:15)
[2018-11-20] MEDS: METOPROLOL TART 50 MG TAB PO SCH ×2 (09:08→20:16)
[2018-11-20] MEDS: DORZOLAMIDE/TIMOLOL 10 ML BTL OU SCH ×2 (09:08→20:17)
[2018-11-20] MEDS: BIMATOPROST 2.5 ML BTL 2.5 ML BTL OU SCH (20:17)
[2018-11-20] MEDS: ATORVASTATIN 40 MG TAB PO SCH (20:19)
[2018-11-21 03:55] VITALS: BP 152/86
[2018-11-21 07:42] VITALS: BP 164/101
[2018-11-21] MEDS: FLUTICASONE PROP 0.05% 16 GM SCH (09:00)
[2018-11-21] MEDS ORDERED: LISINOPRIL 10 MG TAB PO SCH (09:15)
[2018-11-21] MEDS ORDERED: LISI-362 PO (09:17)
[2018-11-21] MEDS ORDERED: ASPI-757 PO (09:17)
--- NOTE | 2018-11-21 09:23 | Hospitalist Progress Note ---
Subjective Progress Notes Subjective He denies any CP/SOB. Physical Exam Vital Signs Date Time Temp Pulse Resp B/P (MAP) Pulse Ox O2 Delivery O2 Flow Rate FiO2 11/21/18 07:44 64 11/21/18 07:42 98.3 16 164/101 (122) 95 Room Air 11/19/18 05:20 1.0 Intake and Output 11/21/18 07:00 Intake Total 4480 ml Output Total 5425 ml Balance -945 ml Intake Oral 3980 ml Other 500 ml Output Urine Total 3675 ml Other 1750 ml # Voids 7 General Appearance: Alert, Awake Result Diagram: 11/20/18 0508 11/20/18 0508 Assessment and Plan Problems: (1) NSTEMI (non-ST elevated myocardial infarction) Status: Acute Assessment & Plan: He did develop inferior/anterior/lateral ST depression after his procedure. He complained of jaw pain, but no chest pain. The initial troponin was negative, but it increased to 1.45 and then 2.030. Now down trend ing down. He has not had any recurrent pain. We had recommended that he be transferred to a higher level of care to likely get a heart catheterization, but he has refused and doesn't want any aggressive treatment. He has expressed understanding that he is at risk of having a fatal arrhythmia/[place]. Also, he understands that any future surgery poses a very high risk of morbidity and mortality for him. He has been restarted on ASA (held prior to surgery) and started on metoprolol/atorvastatin. He has reaffirmed he does not want to pursue any aggressive interventions. He will follow up with his primary care Dr. Rosendo Jacobson to discuss any further treatment or evaluation. (2) Hematuria Status: Acute Assessment & Plan: He has a bladder tumor and had the attempted resection on 11/18. Dr. Cabrera wasn't able to get all of the tumor out because of the ECG changes/NSTEMI. See Dr. Cabrera's notes for details. (3) HTN (hypertension) Status: Chronic Assessment & Plan: He will now be on lisinopril 10mg daily and metoprolol ext release 25mg daily. He has f/u with his PCP on 11/28 and they can reassess his BP. (4) Glaucoma Status: Chronic Assessment & Plan: Very advanced and he has very low vision bilaterally that severely impacts his quality of life. (5) Depression Status: Chronic Assessment & Plan: He is mourning the loss of his and he has a very impaired quality of life secondary to low vision. We offered that he be seen by a counselor, but he refused. He is not suicidal, but is ready to . (6) COPD (chronic obstructive pulmonary disease) Status: Chronic Assessment & Plan: Lungs clear. Exam Sepsis Risk: No Definite Risk WINSTON STRAUSS MD Nov 21, 2018 09:23
[2018-11-21] MEDS: DORZOLAMIDE/TIMOLOL 10 ML BTL OU SCH (09:50)
[2018-11-21] MEDS: METOPROLOL TART 50 MG TAB PO SCH (09:50)
[2018-11-21] MEDS: DOCUSATE SODIUM 100 MG CAP PO SCH (09:50)
--- NOTE | 2018-11-22 03:19 | DISCHARGE SUMMARY ---
DATE OF ADMISSION: November 18, 2018 DATE OF DISCHARGE: November 21, 2018 PRINCIPAL DIAGNOSIS Bladder cancer with hematuria. OTHER DIAGNOSIS Cardiac ischemia postoperatively. HISTORY OF PRESENT ILLNESS Patient is a 78-year-old white male with long smoking history, who was noted to have gross painless hematuria. CT urogram revealed an approximately 3 cm papillary tumor on his left lateral inferior wall, and he is now being brought to the operating room for planned transurethral resection of tumor. Patient was admitted to the hospital on the 18 of November and was taken to the operating room and underwent transurethral resection of his bladder tumor. His tumor was extremely friable and significantly close to the left ureteral orifice. I resected approximately 90% to 95% of the tumor and appeared to have gotten deep resection in the peripheral aspect, but not in the center portion. He was also noted to have a significantly friable bladder neck. Given the size of the tumor and resection time, I felt it was best to terminate the procedure and have the patient return to the OR in four to six weeks for restaging TUR pending his pathology report. He had approximately a 100 mL blood loss. There were no other intraoperative problems. His blood pressure and cardiac rate and rhythm were normal throughout the procedure. He was left with a 22-Occ[place] three-way Hernandez catheter. He was taken to the recovery area in a stable condition; however, approximately one hour after resection, he developed some left neck pain and his EKG showed some ST depression. Troponins were drawn. He was admitted to the hospital. His first troponin in the recovery area was normal; however, approximately four hours later, he had a positive troponin consistent with myocardial ischemic event with damage to the myocardium. At this point, he was consulted by the hospitalist and declined aggressive intervention with a transfer to another facility for complete cardiac evaluation with likely cardiac catheterization and/or stenting. On the , he remained hemodynamically stable. His neck pain had completely resolved, and by the evening of the his troponins were normal, as well as his other laboratory values. His urine was light pink following the resection. He was started on a heparin drip after his troponin became positive; however, this was subsequently discontinued secondary to his risk of bleeding from his bladder and the likelihood that he had fixed stenotic coronary lesions versus a thrombotic event. The patient's urine gradually cleared over the course of the first two days. On the , his CBC was discontinued in the morning, and in the evening his Hernandez catheter was removed. On the , the patient was voiding well with clear urine. He was hemodynamically stable and deemed ready for discharge. CONDITION AT TIME OF DISCHARGE Stable. ACTIVITY No heavy lifting or strenuous activity for four to six weeks. PLAN We will see him in the urology clinic in approximately one week to review his pathology and discuss further treatment as indicated. If there is insufficient muscle in the sample, he would classically need a return to the operating room for another TUR of the tumor base. However, given his recent cardiac event, we will discuss the pros and cons with the patient and his family. He is also scheduled to see the cost accounting clerk in approximately four weeks, and he is to follow up with Dr. Jacobson in one to two weeks. Medications at time of discharge will be lisinopril and metoprolol extended release, in addition to his standard medicines including aspirin. DANAYD
== END 2018-11-21 11:05 | disposition home or self-care (01) | DRG 668 ==
LOC: OR 02:44 → INTOOBSV 20:25 → MED 20:25 → OBSVTOIN 11-20
PROVIDERS: ADMIT Urology; ATTEND Urology
PROC: 0TBB8ZZ Excision of Bladder, Via Natural or Artificial Opening Endoscopic (ICD-10-PCS; principal; 2018-11-18 13:40)
DX: C67.2 Malignant neoplasm of lateral wall of bladder (principal); I21.3 ST elevation (STEMI) myocardial infarction of unspecified site; I10 Essential (primary) hypertension; Z87.891 Personal history of nicotine dependence; Z79.82 Long term (current) use of aspirin; R31.9 Hematuria, unspecified; H40.9 Unspecified glaucoma; F32.9 Major depressive disorder, single episode, unspecified; J44.9 Chronic obstructive pulmonary disease, unspecified; Y83.8 Other surgical procedures as the cause of abnormal reaction of the patient, or of later complication, without mention of misadventure at the time of the procedure; Y73.3 Surgical instruments, materials and gastroenterology and urology devices (including sutures) associated with adverse incidents; Z86.718 Personal history of other venous thrombosis and embolism; Z86.711 Personal history of pulmonary embolism
CPT/HCPCS: 36415; 36416; 71046; 81001; 82040; 82247; 82310; 82374; 82435; 82565; 82947; 82948; 84075; 84132; 84153; 84155; 84295; 84450; 84460; 84484; 84520; 85025; 85027; 85520; 85610; 85730; 87088; 88305; 93005; 93306; A4346; A9270; G0378; J0360; J0690; J1100; J1644; J2270; J2405; J2704; J3010

== ENCOUNTER 2019-01-02 14:00 | Outpatient (RCR) | payer MEDICARE, OTHER ==
[2018-11-19 09:42] VITALS: Ht 180.3 cm; Wt 88.0 kg
[~2019-01-02] VITALS: Ht 180.3 cm; Wt 88.0 kg
[~2019-01-02 14:00] MED LIST changes: +ASPI-757 PO; +ATOR40TA69 PO; -FAMOTIDINE 20 MG TAB PO ONE; +METO25TA23 PO
[2019-01-02 14:11] VITALS: BP 199/99
[2019-01-02] MEDS ORDERED: ASPI-1471 PO (14:16)
--- NOTE | 2019-01-02 22:50 | ONCOLOGY CONSULTATION ---
EVENT DATE: January 02, 2019 REFERRING PHYSICIAN Holger Cabrera MD. REASON FOR CONSULTATION Evaluation and management of high-grade bladder cancer. 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 On the October, he had a CT abdomen and pelvis which came back positive for 2.9 cm mass in the posterior left side of the bladder just anterior to the UVJ. There was also some enlargement of the prostate with a small bilateral inguinal hernias and small sclerotic densities in the right iliac bone, consistent with bone islands. On the October, patient had a chest x-ray which showed hyperinflated lungs, but on the October, patient had cystoscopy with TURBT, and patient had an incomplete resection because of bad bleeding and development of tachycardia, and maybe heart attack or ischemic episode at that time. The biopsy was positive for high-grade transitional cell carcinoma, but there was no smooth muscle to make the staging because of the incomplete resection. PAST MEDICAL HISTORY 1. Blindness. 2. Headache. 3. Bladder cancer diagnosed 2018. 4. COPD. 5. History of pleural effusion after rib fracture. 6. DVT in 1995 after ankle fracture. 7. DVT with PE in 2013. 8. Rib fracture 2013. 9. Cellulitis in the buttock area 2012. PAST SURGICAL HISTORY 1. Cystoscopy with TURBT November 20, 2018. 2. Vasectomy. 3. Tonsillectomy. 4. Chest tube placement in 2013 for pleural effusion. 5. Cataract extraction in 2006. FAMILY HISTORY Mother had breast cancer. SOCIAL HISTORY Patient is a with two children, a son and a daughter. 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 He smokes about one pack a day for 50 years. He drinks one beer daily recently. CURRENT MEDICATIONS 1. Aspirin 81 mg daily. 2. Lisinopril 10 mg daily. ALLERGIES ADHESIVE TAPE. REVIEW OF SYSTEMS CONSTITUTIONAL: No appetite or weight change. No fever. He has some chills and night sweats occasionally. No recent infection. HEENT: Ears: No tinnitus or hearing problem. Nose: He has nasal discharge. No epistaxis. Throat: No sore throat or mouth ulcers. Eyes: Patient is nearly blind. RESPIRATORY: No shortness of breath. He has cough with expectoration. No hemoptysis. CARDIOVASCULAR: No chest pain, orthopnea, or paroxysmal nocturnal dyspnea (PND). No edema. No palpitations. GASTROINTESTINAL: No nausea or vomiting. No diarrhea or constipation. No change in bowel movements. No heartburn or swallowing difficulties. He has abdominal pain which looks like pelvic pressure. No jaundice. No hematemesis, melena, or rectal bleeding. GENITOURINARY: He has hematuria. MUSCULOSKELETAL: He has pain in the hands and fingers. NEUROLOGIC: He has tingling and numbness in the hands or feet. He has headaches. No convulsions. HEMATOLOGIC/LYMPHATIC: No bleeding or easy bruising. No weakness or fatigue. No enlarged lymph nodes. SKIN: No skin rash or lumps. PSYCHIATRIC: No anxiety or depression. PHYSICAL EXAMINATION GENERAL: Looks stable. Well developed, well nourished, and in no acute distress. VITAL SIGNS: Blood pressure 199/99, pulse 85 per minute, respirations 16 per minute, temperature 96.9, pulse ox 91% on room air. HEENT: Head: Atraumatic. No sinus tenderness to palpation. Eyes: No icterus or conjunctivitis. Mouth and Throat: No oral thrush or mucositis. NECK: Supple. No cervical or supraclavicular lymphadenopathy. LUNGS: Clear to auscultation and percussion bilaterally. HEART: Regular rate and rhythm. No gallops, murmurs, clicks, or rubs. ABDOMEN: Soft and lax. No tenderness. No hepatosplenomegaly. No masses. EXTREMITIES: No cyanosis, clubbing, or edema. LYMPHATICS: No peripheral lymphadenopathy. NEUROLOGIC: Conscious, alert, and oriented times three. No focal motor or sensory deficits. PSYCHIATRIC: Mood and affect appear normal. SKIN: No skin rash, bruise, or purpuric eruption. 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 The patient even in the recovery room had what looked like a small, minor heart attack or ischemic episode of the heart. The biopsy was positive for high-grade transitional cell carcinoma, but no smooth muscle was in the biopsy specimen to make the right staging. Given also his general condition, I believe bladder preservation procedure with concurrent chemoradiation may be a good option for him and not expose him to more risk of biopsy and invasive surgeries. I had a long discussion with the patient and his daughter today about that plan, and I am planning to contact Dr. Cabrera to know exactly his plan, too, and if this is what he was looking for, I believe we can go with concurrent chemoradiation. We will get him an appointment with a radiology oncologist. For administration of chemotherapy, I am planning to place a peripherally inserted central catheter line so we will not expose him further to even minor anesthesia. I will see him again in a week to decide about further management. PLAN 1. Contact Dr. Cabrera for coordination of care. 2. Radiation therapy consult. 3. PICC line placement. 4. Concurrent chemoradiation for bladder preservation procedure for his bladder cancer. 5. Patient to return in one week with CBC and chem panel. MTDD
== END 2019-04-01 ==
LOC: ONC 14:00
PROVIDERS: ATTEND Internal Medicine Hematology
DX: C67.9 Malignant neoplasm of bladder, unspecified (principal); F17.210 Nicotine dependence, cigarettes, uncomplicated
CPT/HCPCS: 99202

== ENCOUNTER 2019-02-25 13:30 | Outpatient (RCR) | payer MEDICARE, OTHER ==
[2018-11-19 09:42] VITALS: BMI 22.3
[2019-01-09 09:59] VITALS: BP 161/87
--- NOTE | 2019-01-09 21:52 | ONCOLOGY CONSULTATION ---
EVENT DATE: January 09, 2019 REFERRING PHYSICIAN Kelsey Dennis MD DIAGNOSIS Transitional cell carcinoma of the bladder. CHIEF COMPLAINT Discussion of bladder preservation therapy with radiotherapy with TURBT followed by chemoradiation therapy. HISTORY OF PRESENT ILLNESS Patient is a 78-year-old gentleman who was diagnosed with a transitional cell carcinoma of the bladder after he presented with hematuria in October 2018. A CT scan of the abdomen and pelvis showed a 2.9 cm mass in the posterior left side of the bladder just anterior to the UVJ. The patient was referred to Dr. Cabrera and underwent cystoscopy on November 20, 2018. Dr. Cabrera noted an approximately 3 cm bladder mass on the inferior posterior bladder wall with abutment of the left ureteral orifice. Dr. Cabrera performed a TURBT with resection of 90% to 95% of the bladder mass. There was, however, significant bleeding, and the patient developed tachycardia with a possible ischemic episode, and the procedure was discontinued early. The pathology revealed transitional cell carcinoma of the bladder. There was no clear invasion of the tumor into the smooth muscle; however, this was an incomplete resection given the intraoperative complications. Clinically, the lesion was felt to invade into the muscle on TURBT. The patient has met with Dr. Dennis, who has discussed postoperative chemoradiation therapy. He has been referred to Radiation Oncology to discuss radiotherapy as part of a bladder preservation treatment approach for his high-grade transitional cell carcinoma of the bladder with smooth muscle invasion. The patient on presentation today overall has good urinary function. He denies a sensation of incomplete emptying. He has a relatively strong stream. The patient has no dysuria. He does have some suprapubic pain. PAST MEDICAL HISTORY 1. Blindness. 2. Headache. 3. Transitional cell carcinoma of the bladder, clinical T2 N0, diagnosed in October 2018. 4. COPD. 5. History of pleural effusion after rib fracture. 6. DVT. 7. Cellulitis in the buttock area. PAST SURGICAL HISTORY 1. Cystoscopy with TURBT. 2. Vasectomy. 3. Tonsillectomy. 4. Chest tube placement. 5. Cataract extraction. FAMILY HISTORY Mother with breast cancer. SOCIAL HISTORY The patient is a with two children, a son and a daughter. The patient smokes about one pack per day times 50 years. He drinks one beer daily. CURRENT MEDICATIONS 1. Aspirin. 2. Lisinopril. 3. Bimatoprost. 4. Dorzolamide. ALLERGIES ADHESIVE TAPE. REVIEW OF SYSTEMS A 14-point review of systems is signed and documented in the chart. PHYSICAL EXAMINATION VITAL SIGNS: Weight 196 pounds, temperature 97.3, blood pressure 167/87, pulse 71, respiratory rate 16, O2 sat 95% on room air. CONSTITUTIONAL: Normal appearance. Patient is sitting comfortably in a chair in no acute distress. HEENT: Pupils are equal, round, and reactive to light and accommodation. Extraocular movements are intact. There are no lesions in the oropharynx. LUNGS: Clear to auscultation and percussion bilaterally. CARDIOVASCULAR: Regular rate and rhythm. Normal S1 and S2. No murmurs, rubs, or gallops. ABDOMEN: Soft, nontender, with positive bowel sounds. No hepatosplenomegaly. EXTREMITIES: No edema, clubbing, or cyanosis. NEUROLOGIC: The patient is alert and oriented x3. Gait is normal. PERFORMANCE STATUS: 90%. IMPRESSION The patient is a 78-year-old gentleman with a transitional cell carcinoma of the bladder measuring 3 cm in size on clinical evaluation during cystoscopy with muscle invasion, status post transurethral resection of bladder tumor. The patient underwent a 90% resection of his tumor with the transurethral resection of bladder tumor stopped short secondary to a possible ischemic event. The patient presents today to discuss radiotherapy as part of a combined modality approach for bladder preservation of a clinical muscle invasive transitional cell carcinoma of the bladder. PLAN The patient was apprised of the efficacy of radiotherapy following TURBT as part of a bladder preservation approach with approximately 60% of patients achieving long-term disease-free survival with bladder preservation. The patient was apprised of the side effect profile of radiotherapy. At this point, the patient wishes to proceed with radiotherapy and has signed written informed consent to undergo this treatment. The patient will be scheduled for a CT scan next week for planning simulation. We will plan to start radiotherapy the week of January 20, 2019. We will plan on a six-week course of radiotherapy. We will plan for modular radiotherapy to decrease the dose to "normal" structures such as the rectum, bone marrow, femurs, and small bowel. MTDD
== END 2019-04-08 ==
LOC: RAON 13:30
PROVIDERS: ATTEND Radiology Radiation Oncology
DX: Z51.0 Encounter for antineoplastic radiation therapy (principal); C67.9 Malignant neoplasm of bladder, unspecified; F17.210 Nicotine dependence, cigarettes, uncomplicated; R53.83 Other fatigue
CPT/HCPCS: 77300; 77301; 77334; 77336; 77338; 77386